=== PATIENT | female | born 1960 | race Two or more races ===

== ENCOUNTER 2018-04-06 10:55 | Outpatient (CLI) | payer OTHER | END 2018-04-06 12:58 | disposition home or self-care (01) | LOC: NUCLEAR 10:55 | DX: M85.80 Other specified disorders of bone density and structure, unspecified site (principal); M81.0 Age-related osteoporosis without current pathological fracture ==

== ENCOUNTER → 2018-04-06 | Outpatient (CLI) | payer OTHER | END | disposition home or self-care (01) | LOC: SONOGRAMA 10:26 | DX: E21.2 Other hyperparathyroidism (principal) ==